=== PATIENT | male | born 1955 | race Caucasian/White ===

== ENCOUNTER 2019-01-09 08:28 | Day surgery (SDC) | payer MEDICAID ==
[~2019-01-09] VITALS: Ht 180.3 cm; Wt 105.1 kg
[~2019-01-09 08:28] MED LIST: HEPARIN 1,000 UNITS/ML, 10ML ONE
[2019-01-09 09:05] VITALS: BP 148/90
[2019-01-09] MEDS ORDERED: SODIUM CHLORIDE 0.9% 1,000 ML IV SCH ×2 (09:08→09:10)
[2019-01-09] MEDS ORDERED: PLEASE ENTER ALLERGIES MC SCH (09:30)
[2019-01-09] MEDS ORDERED: PLEASE ENTER HEIGHT AND WEIGHT MC SCH (09:30)
[2019-01-09] MEDS ORDERED: ATOR40TA78 PO (09:34)
[2019-01-09] MEDS ORDERED: INSU100C SQ-INSULIN (09:34)
[2019-01-09] MEDS ORDERED: CHOL100011 PO (09:34)
[2019-01-09] MEDS ORDERED: METO25TA35 PO (09:34)
[2019-01-09] MEDS ORDERED: LEVO88TA4 PO (09:34)
[2019-01-09] MEDS ORDERED: MAGN420T PO (09:34)
[2019-01-09] MEDS ORDERED: ASCO500T5 PO (09:34)
[2019-01-09] MEDS ORDERED: ASPI-515 PO (09:34)
[2019-01-09] MEDS ORDERED: INSU100I13 INJ (09:34)
[2019-01-09] MEDS ORDERED: PHENYLEPHRINE 10 MG/ML ONE (11:14)
[2019-01-09] MEDS ORDERED: MIDAZOLAM 1 MG/ML, 2ML ONE (11:28)
[2019-01-09] MEDS ORDERED: PROPOFOL 10 MG/ML, 20ML ONE (11:28)
[2019-01-09] MEDS ORDERED: FENTANYL PF 250 MCG/5ML ONE (11:28)
[2019-01-09] MEDS ORDERED: CEFAZOLIN 1,000 MG ONE ×2 (11:29)
[2019-01-09] MEDS ORDERED: SODIUM CHLORIDE 0.9% PF 10ML ONE (11:29)
[2019-01-09] MEDS ORDERED: ONDANSETRON 2MG/ML, 2ML IV PRN (12:30)
[2019-01-09] MEDS ORDERED: PROMETHAZINE 25 MG/ML, 1ML IM PRN ×2 (12:30)
[2019-01-09] MEDS ORDERED: hydrALAzine 20 MG/ML, 1ML IV PRN ×2 (12:30→18:30)
[2019-01-09] MEDS ORDERED: FENTANYL PF 100 MCG/2ML IV PRN (12:30)
[2019-01-09] MEDS ORDERED: HYDROmorphone 2 MG/ML, 1ML IVPush PRN (12:30)
[2019-01-09] MEDS ORDERED: PROMETHAZINE 25 MG/ML, 1ML IV PRN (12:30)
[2019-01-09] MEDS ORDERED: PROMETHAZINE 12.5 MG SUPP PR PRN (12:30)
[2019-01-09] MEDS ORDERED: PROMETHAZINE 25 MG SUPP PR PRN (12:30)
[2019-01-09] MEDS ORDERED: ONDANSETRON ODT 8 MG PO PRN (12:30)
[2019-01-09] MEDS ORDERED: OXYcodone 5 MG/5 ML ORAL.SOL UDC PO PRN (12:30)
[2019-01-09] MEDS ORDERED: LABETALOL 5MG/ML, 20ML IV PRN (12:30)
[2019-01-09] MEDS: LABETALOL 5MG/ML, 20ML IV PRN ×3 (16:35→17:26)
[2019-01-09] MEDS ORDERED: METOPROLOL TARTRATE 25 MG TABLET PO ONE (18:30)
== END 2019-01-09 19:20 | disposition home or self-care (01) ==
LOC: OUT 08:28 → EDBD 08:28 → OUT 19:20
PROVIDERS: ATTEND Surgery Vascular Surgery
DX: T82.898A Other specified complication of vascular prosthetic devices, implants and grafts, initial encounter (principal); I12.0 Hypertensive chronic kidney disease with stage 5 chronic kidney disease or end stage renal disease; E11.22 Type 2 diabetes mellitus with diabetic chronic kidney disease; N18.6 End stage renal disease; E03.9 Hypothyroidism, unspecified; Y83.8 Other surgical procedures as the cause of abnormal reaction of the patient, or of later complication, without mention of misadventure at the time of the procedure; Y92.89 Other specified places as the place of occurrence of the external cause; Z79.82 Long term (current) use of aspirin; Z79.84 Long term (current) use of oral hypoglycemic drugs
CPT/HCPCS: 36415; 36561; 36589; 36821; 71045; 80047; 82962; 93005; C1751; J0360; J0690; J1644; J2250; J2370; J2704; J3010; J7030

== ENCOUNTER 2019-03-23 11:31 | Day surgery (SDC) | payer MEDICARE ==
[~2019-03-23] VITALS: Ht 180.3 cm; Wt 107.2 kg
[~2019-03-23 11:31] MED LIST changes: +ASCO500T5 PO; +ASPI-515 PO; +ATOR40TA78 PO; +CHOL100011 PO; -HEPARIN 1,000 UNITS/ML, 10ML ONE; +INSU100C SQ-INSULIN; +INSU100I13 INJ; +LEVO88TA4 PO; +MAGN420T PO; +METO25TA35 PO
[2019-03-23] MEDS ORDERED: SODIUM CHLORIDE 0.9% 1,000 ML IV SCH (11:46)
[2019-03-23 12:10] VITALS: BP 189/99
[2019-03-23] MEDS ORDERED: BUPIVACAINE/PF 0.5% ONE ×2 (12:33)
[2019-03-23] MEDS ORDERED: PROTAMINE SULFATE 10 MG/ML, 5ML ONE (12:33)
[2019-03-23] MEDS ORDERED: THROMBIN 20,000 UNIT VIAL TP ONE (12:34)
[2019-03-23] MEDS ORDERED: MICROFIBRILLAR COLLAGEN 1 GM TP ONE (12:34)
[2019-03-23] MEDS ORDERED: HEPARIN 1,000 UNITS/ML, 10ML ONE ×2 (12:34→15:20)
[2019-03-23] MEDS ORDERED: LIDOCAINE 1%, 20ML ONE (14:56)
[2019-03-23] MEDS ORDERED: hydrALAzine 20 MG/ML, 1ML ONE (15:20)
[2019-03-23] MEDS ORDERED: CEFAZOLIN 1,000 MG ONE (15:20)
[2019-03-23] MEDS ORDERED: METOPROLOL 1 MG/ML, 5ML ONE (15:20)
[2019-03-23] MEDS ORDERED: PROMETHAZINE 25 MG/ML, 1ML IV PRN (16:00)
[2019-03-23] MEDS ORDERED: HYDROmorphone 2 MG/ML, 1ML IVPush PRN (16:00)
[2019-03-23] MEDS ORDERED: OXYcodone 5 MG/5 ML ORAL.SOL UDC PO PRN (16:00)
[2019-03-23] MEDS ORDERED: hydrALAzine 20 MG/ML, 1ML IV PRN (16:00)
[2019-03-23] MEDS ORDERED: LABETALOL 5 MG/ML SYRINGE IV PRN (16:00)
[2019-03-23] MEDS ORDERED: MEPERIDINE/PF 25MG/0.5ML IVPush PRN (16:00)
[2019-03-23] MEDS ORDERED: ACETAMINOPHEN 325 MG TABLET PO PRN (16:00)
[2019-03-23] MEDS ORDERED: ALBUTEROL SULFATE 2.5 MG/3 ML NPPB PRN (16:00)
[2019-03-23] MEDS ORDERED: DIAZEPAM 5 MG/ML, 10ML VIAL IVPush PRN (16:00)
[2019-03-23] MEDS ORDERED: FENTANYL PF 100 MCG/2ML IV PRN (16:00)
[2019-03-23] MEDS ORDERED: PROMETHAZINE 25 MG/ML, 1ML ONE (16:33)
== END 2019-03-23 18:15 | disposition home or self-care (01) ==
LOC: OUT 11:31
PROVIDERS: ATTEND Surgery Vascular Surgery
DX: E11.22 Type 2 diabetes mellitus with diabetic chronic kidney disease (principal); I12.0 Hypertensive chronic kidney disease with stage 5 chronic kidney disease or end stage renal disease; N18.6 End stage renal disease; Z79.84 Long term (current) use of oral hypoglycemic drugs
CPT/HCPCS: 36415; 36821; 80047; 82962; 93005; J0360; J0690; J1644; J2550; J2720; J7030